=== PATIENT | female | born 1965 ===

== ENCOUNTER 2024-02-23 12:31 | Outpatient (CLI) | payer OTHER, SELFPAY ==
--- NOTE | ~2024-02-23 | MR_ITS ---
EXAMINATION: MR shoulder LT wo con DATE: 02/23/2024 13:11 INDICATION: Left shoulder pain TECHNIQUE: Magnetic resonance imaging (MRI) of the left shoulder was performed without intravenous co ntrast. Sequences included axial PD-weighted FS FSE, coronal oblique PD-weighted FS FSE, coronal obli que T2-weighted FS FSE, sagittal PD-weighted FS FSE, and sagittal T1-weighted SE. COMPARISON: None. FINDINGS: Coracoacromial arch: The acromion undersurface is curved in morphology (type II). The coracoacromial ligament is normal. M oderate acromioclavicular osteoarthritis with small inferiorly directed osteophytes at the lateral he ad of the clavicle which exerts subtle mass effect upon the underlying distal supraspinatus muscle be lly and tendon. Rotator cuff: Moderate supraspinatus tendinopathy and mild anterior infraspinatus tendinopathy without tear. The mitchell bscapularis and teres minor tendons are normal. There is mild increased fluid signal in the distal mitchell praspinatus muscle belly. Biceps tendon, glenoid labrum and glenohumeral cartilage: Long head of the biceps tendon is normal. Normal anterosuperior sublingual foramen. The labrum is oth erwise normal. Glenohumeral cartilage is normal. Fluid: Minimal glenohumeral joint effusion. No loose osteochondral bodies. Small amount of fluid with synovi tis in the subacromial/subdeltoid bursa consistent with moderate bursitis. Bones/other: Bone alignment is normal. No fracture or pathologic marrow replacing process. Low signal intensity [place] at the glenoid. There are multiple prominent left axillary and subpectoral lymph nodes with the largest measuring 1.3 similar in maximal short axis diameter. IMPRESSION: 1. Moderate supraspinatus tendinopathy without tear and mild edema in the distal muscle belly which c ould be related to impingement result from moderate acromioclavicular osteoarthritis with small infer iorly directed osteophyte at the lateral head of the clavicle which exerts mass effect upon the dista l muscle belly. 2. Moderate subacromial/subdeltoid bursitis. 3. Nonspecific left axillary and subpectoral lymphadenopathy which could be reactive, metastatic or d ue to lymphoma. Correlate clinically and would consider ultrasound-guided core needle biopsy for path ologic correlation. Reviewed, dictated and finalized at location A. IMPRESSION: 1. Moderate supraspinatus tendinopathy without tear and mild edema in the dista l muscle belly which could be related to impingement result from moderate acrom ioclavicular osteoarthritis with small inferiorly directed osteophyte at the la teral head of the clavicle which exerts mass effect upon the distal muscle alejo y. 2. Moderate subacromial/subdeltoid bursitis. 3. Nonspecific left axillary and subpectoral lymphadenopathy which could be lucas ctive, metastatic or due to lymphoma. Correlate clinically and would consider u ltrasound-guided core needle biopsy for pathologic correlation.
== END 2024-02-23 12:32 | disposition home or self-care (01) ==
LOC: GOSHIMG 12:32
PROVIDERS: PCP Orthopaedic Surgery; Visit Provider Orthopaedic Surgery
DX: S46.012A Strain of muscle(s) and tendon(s) of the rotator cuff of left shoulder, initial encounter (principal); X58.XXXA Exposure to other specified factors, initial encounter; M75.52 Bursitis of left shoulder
CPT/HCPCS: 73221